=== PATIENT | female | born 1995 | race Caucasian/White ===

== ENCOUNTER 2017-08-30 23:34 | Emergency (ER) | payer SELFPAY ==
[~2017-08-30] VITALS: Ht 167.6 cm; Wt 61.7 kg
[2017-08-30] MEDS ORDERED: DiphenhydrAMINE 50mg/ml Inj ONE (23:42)
[2017-08-30] MEDS ORDERED: Solu-MEDROL 125mg Inj IVP ONE (23:45)
[2017-08-30] MEDS ORDERED: DiphenhydrAMINE 50mg/ml Inj IVP ONE (23:45)
[2017-08-30] MEDS ORDERED: Albuterol ud Inhalation HHN ONE (23:45)
[2017-08-31 00:02] VITALS: BP 132/80
[2017-08-31] MEDS ORDERED: PREDNISONE20 MG ORAL (00:48)
[2017-08-31] MEDS ORDERED: EPIPEN 2-P0.3 MG/0.3 IM (00:48)
--- NOTE | 2017-08-31 00:49 | Emergency Room Report ---
History of Present Illness General Chief Complaint: Allergic Reaction Source: Patient Present Illness HPI Is a 22-year-old female with history of allergy to shrimp. She had a small amount of shrimp tonight and started having itchiness, lip swelling and eye swelling. Also has a free breathing. No nausea no vomiting. She took 2 Benadryl and came here immediately. Never used epinephrine Allergies: Coded Allergies: Shrimp (Verified Allergy, Unknown, 08/31/17) Patient History Past Medical History: see triage record, old chart reviewed Past Surgical History: none Pertinent Family History: none Social History: Denies: smoking Last Menstrual Period: Aug Now: No Immunizations: other Reviewed Nursing Documentation: PMH: Agreed, PSxH: Agreed Review of Systems Eye: Denies: eye pain, blurred vision ENT: Denies: ear pain, nose congestion, throat swelling Respiratory: Reports: cough, shortness of breath Cardiovascular: Denies: chest pain, palpitations Gastrointestinal: Denies: abdominal pain, diarrhea, nausea, vomiting Musculoskeletal: Denies: back pain, joint pain Skin: Denies: rash Neurological: Denies: headache, numbness Endocrine: Denies: increased thirst, increased urine Hematologic/Lymphatic: Denies: easy bruising All Other Systems: negative except mentioned in HPI Physical Exam Vital Signs Date Time Temp Pulse Resp B/P (MAP) Pulse Ox O2 Delivery O2 Flow Rate FiO2 08/30/17 23:43 98.1 115 18 142/100 100 Room Air 08/30/17 23:58 21 vitals with tachycardia Sp02 EP Interpretation: reviewed, normal General Appearance: well appearing, no apparent distress, alert Head: normocephalic, atraumatic Eyes: bilateral eye PERRL, bilateral eye EOMI, bilateral eye other - Puffiness to the eyelid ENT: hearing grossly normal, normal pharynx, other - Mild edema to the lips Neck: full range of motion, supple, no meningismus Respiratory: chest non-tender, other - Dyspnea Cardiovascular #1: regular rate, rhythm, no murmur Gastrointestinal: normal bowel sounds, non tender, no mass, no organomegaly, no bruit, non-distended Musculoskeletal: back normal, gait/station normal, normal range of motion Psychiatric: mood/affect normal Skin: warm/dry Medical Decision Making Diagnostic Impression: Primary Impression: Allergic reaction Qualified Codes: T78.40XA - Allergy, unspecified, initial encounter ER Course Patient was reaction to shrimp. Explained to her that she cannot have shrimp anymore even a small amount. She is asymptomatic now after Benadryl, Solu- Medrol, epinephrine. We'll discharge home with an EpiPen. Last Vital Signs Date Time Temp Pulse Resp B/P (MAP) Pulse Ox O2 Delivery O2 Flow Rate FiO2 08/31/17 00:03 99 17 100 Room Air 08/31/17 00:02 98.1 132/80 21 Status: improved Disposition: HOME, SELF-CARE Condition: Improved Scripts Epinephrine (Epipen 2-Viktor) 0.3 Mg/0.3 Ml Auto.injct 0.3 MG IM ONCE, #1 EA Prov: CECY KIMBLE M.D. 08/31/17 Prednisone* (PREDNISONE*) 20 Mg Tablet 40 MG ORAL DAILY, #6 TAB Prov: CECY KIMBLE M.D. 08/31/17 Patient Instructions: Food Allergy Additional Instructions: Did not eat shrimp anymore. Followup with your DrMel in 7 days. Use EpiPen for severe reaction. Return if worse. CECY KIMBLE M.D. Aug 31, 2017 00:49
[2017-08-31 00:52] VITALS: BP 110/76
[2017-08-31 01:50] VITALS: BP 112/70
[2017-08-31 01:55] VITALS: BP 112/70
== END 2017-08-31 01:55 | disposition home or self-care (01) ==
LOC: EMR 23:45
DX: T78.1XXA Other adverse food reactions, not elsewhere classified, initial encounter (principal); X58.XXXA Exposure to other specified factors, initial encounter; R60.0 Localized edema; L29.9 Pruritus, unspecified
CPT/HCPCS: 94640; 94664; 96374; 96375; 99284; J0171; J1200; J2930